=== PATIENT | female | born 1970 | race Caucasian/White ===

== ENCOUNTER 2023-08-14 22:32 | Emergency (ER) | payer SELFPAY ==
[2023-08-14] MEDS ORDERED: ALBUTEROL 2.5 MG/3 ML NEB SOL ONE (23:12)
[2023-08-14] MEDS ORDERED: lisinopriL 10 MG TAB ONE (23:12)
[2023-08-14] MEDS ORDERED: METHYLPREDNISOLONE 125 MG INJ ONE (23:12)
[2023-08-14] MEDS ORDERED: IPRATROPIUM BROM 0.5MG/2.5ML ONE (23:12)
[2023-08-14] MEDS ORDERED: lisinopriL 5 MG TAB ONE (23:18)
--- NOTE | 2023-08-14 23:58 | EDPHYS ---
Physician Documentation [facility] Name: Yvonne Ivey Age: 53 yrs Sex: Female : 1970 Arrival Date: 08/14/2023 Time: 22:32 Bed 6 Private MD: ED Physician Costa Piña HPI: 08/13 22:42 This 53 yrs old Female presents to ER via Unassigned with complaints of Asthma kb Exacerbation, Cough, Congestion, Breathing Difficulty. 22:42 Pt is a 53 year old female who presents for headache, cough, bodyaches, congestion for kb 2.5 weeks. States she is now having intermittent shortness of breath and lung pain. Denies fever. Pt also requests refills of home medication for cholesterol and hypertension because she just moved here and hasn't gotten a PCP. Lisinopril 10mg daily and atorvastatin 20mg daily. EDGER AUTOMATIC: 23:10 unknown [facility] Historical: - Allergies: 23:05 No Known Allergies; [facility] - PMHx: 23:05 Hypertensive disorder; Chronic obstructive lung disease; Asthma; [facility] - PSHx: 23:05 Ligation of fallopian tube; [facility] - Immunization history:: Adult Immunizations not up to date. - Infectious Disease History:: Denies. - Social history:: Smoking status: Patient/guardian denies using tobacco, the patient reports quitting approximately 15 years ago. ROS: 22:42 Constitutional: As per HPI kb Exam: 22:42 Constitutional: This is a well developed, well nourished patient who is awake, alert, kb and in no acute distress. Head/Face: Normocephalic, atraumatic. ENT: Moist Mucous membranes Cardiovascular: Regular rate Skin: Warm, dry with normal turgor. Normal color. MS/ Extremity: Pulses equal, no cyanosis. Neurovascular intact. Full, normal range of motion. Neuro: Awake and alert, GCS 15, oriented to person, place, time, and situation. Moves all extremities. Normal gait. 22:42 Respiratory: the patient does not display signs of respiratory distress, Respirations: normal, Breath sounds: wheezing: expiratory that is mild, that is moderate, is heard in the left posterior lower lobe, right posterior middle lobe and right posterior lower lobe, Vital Signs: 23:01 BP 175 / 88; Pulse 97; Resp 22; Temp 98.2(O); Pulse Ox 94% on R/A; Weight 134.26 kg [facility] (R); Pain 0/10; 08/14 00:06 BP 156 / 67; Pulse 78; Resp 18; Temp 98.4; Pulse Ox 96% on R/A; Pain 0/10; [facility] 08/13 23:01 Pain Scale: Adult [facility] 08/14 00:06 Pain Scale: Adult [facility] MDM: 08/13 22:38 Patient medically screened. kb 23:17 ED course: Pt states she just spoke to a family member that looked at her pill bottles kb and her lisinopril is 5mg daily. 23:54 Data reviewed: vital signs, nurses notes. kb 23:54 Differential diagnosis: pneumonia, uri, bronchitis, asthma. Counseling: I had a kb detailed discussion with the patient and/or guardian regarding the historical points, exam findings, and any diagnostic results supporting the discharge/admit diagnosis, radiology results, the need for outpatient follow up, a family practitioner, to return to the emergency department if symptoms worsen or persist or if there are any questions or concerns that arise at home. 08/13 22:45 Order name: Chest Pa And Lat (2 Views) XRAY kb Administered Medications: 22:45 CANCELLED (Physician Discretion): [id number] mg IVP once kb 23:18 CANCELLED (Duplicate Order): [id number] mg PO once kb 23:21 Drug: Albuterol Inhalation 2.5 mg Inhalation once Route: Inhalation; contra [facility] 08/14 00:09 Follow up: Response: No adverse reaction [facility] 08/13 23:21 Drug: Ipratropium Inhalation Aerosol 0.5 mg Inhalation once Route: Inhalation; contra [facility] 08/14 00:08 Follow up: Response: No adverse reaction [facility] 08/13 23:21 Drug: MethylPREDNISolone Sodium Succinate IM 125 mg IM once Route: IM; [address]; 08/14 00:08 Follow up: Response: No adverse reaction [facility] 08/13 23:21 Drug: Lisinopril PO 5 mg PO once Route: PO; contra [facility] 08/14 00:08 Follow up: Response: No adverse reaction [facility] Disposition Summary: 08/14/23 23:57 Discharge Ordered Notes: Location: Home kb Condition: Stable kb Diagnosis - Unspecified asthma with (acute) exacerbation kb - Encounter for issue of repeat prescription kb Followup: kb - With: Emergency Department - When: As needed - Reason: Worsening of condition Followup: kb - With: Private Physician - When: 2 - 3 days - Reason: Recheck today's complaints, Continuance of care, Re-evaluation by your physician Discharge Instructions: - Discharge Summary Sheet kb - Asthma, Adult, [id number] kb Forms: - Medication Reconciliation Form kb - Antibiotic Education kb - Prescription Opioid Use kb - Patient Portal Instructions kb - Leadership Thank You Letter kb Prescriptions: - atorvastatin 20 mg Oral tablet - take 1 tablet ORAL route daily; 30 tablet; Refills: 0, Product Selection kb Permitted - Prednisone 20 mg Oral Tablet - take 1 tablet ORAL route once daily for 5 days; 5 tablet; Refills: 0, Product kb Selection Permitted - Albuterol Sulfate 2.5 mg /3 mL (0.083 %) Inhalation Solution for Nebulization - inhale 1 unit NEBULIZATION route every 8 hours As needed; 1 Unspecified; kb Refills: 0, Product Selection Permitted - Lisinopril 5 mg Oral tablet - take 1 tablet ORAL route once daily; 30 tablet; Refills: 0, Product Selection kb Permitted Signatures: Dispatcher [employer] EDMS Kalani Gomez, CAITIE GUZMAN-Kenzie Calero RN RN km8 Felice Kaur, RN RN jh8 Corrections: (The following items were deleted from the chart) 08/13 22:45 22:45 MethylPrednisoLONE IVP 125 mg IVP once ordered. kb kb 22:48 22:42 Pt is a 53 year old female who presents for headache, cough, bodyaches, kb congestion for 2.5 weeks. States she is now having intermittent shortness of breath and lung pain. Denies fever. . kb 22:49 22:42 Pt is a 53 year old female who presents for headache, cough, bodyaches, kb congestion for 2.5 weeks. States she is now having intermittent shortness of breath and lung pain. Denies fever. Pt also requests refills of home medication for cholesterol and hypertension because she just moved here and hasn't gotten a PCP. Lisinopril 10mg daily and an unknown cholesterol medication. kb 23:18 22:50 Lisinopril PO 10 mg PO once ordered. kb kb
--- NOTE | 2023-08-14 23:58 | ER ---
Nurse's Notes [facility] Name: Yvonne Ivey Age: 53 yrs Sex: Female : 1970 Arrival Date: 08/14/2023 Time: 22:32 Bed 6 Private MD: Diagnosis: Unspecified asthma with (acute) exacerbation;Encounter for issue of repeat prescription Presentation: 08/13 23:01 Chief complaint: Patient states: cough x1 week, hx of asthma, copd. Coronavirus screen: [facility] Vaccine status: Patient reports being unvaccinated. Client denies travel out of the [place] in the last 14 days. Ebola Screen: No symptoms or risks identified at this time. Resp Distress? Mild respiratory distress is noted. Initial Sepsis Screen: Does the patient meet any 2 criteria? No. Patient's initial sepsis screen is negative. Does the patient have a suspected source of infection? No. Patient's initial sepsis screen is negative. Risk Assessment: Do you want to hurt yourself or someone else? Patient reports no desire to harm self or others. Onset of symptoms. 23:01 Method Of Arrival: Ambulatory [facility] 23:01 Acuity: PADMINI 4 [facility] Triage Assessment: 23:07 General: Appears in no apparent distress. obese, well groomed, Behavior is calm, [facility] cooperative. Pain: Denies pain. Respiratory: Airway is patent Respiratory effort is even, unlabored, Respiratory pattern is regular, symmetrical, Breath sounds are coarse Breath sounds with wheezes bilaterally. 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 Historical: - Allergies: 23:05 No Known Allergies; [facility] - PMHx: 23:05 Hypertensive disorder; Chronic obstructive lung disease; Asthma; [facility] - PSHx: 23:05 Ligation of fallopian tube; [facility] - Immunization history:: Adult Immunizations not up to date. - Infectious Disease History:: Denies. - Social history:: Smoking status: Patient/guardian denies using tobacco, the patient reports quitting approximately 15 years ago. Screenin:09 [facility] ED Fall Risk Assessment (Adult) History of falling in the last 3 months, [facility] including since admission No falls in past 3 months (0 pts) Confusion or Disorientation No (0 pts) Intoxicated or Sedated No (0 pts) Impaired Gait No (0 pts) Mobility Assist Device Used No (0 pt) Altered Elimination No (0 pt) Score/Fall Risk Level 0 - 2 = Low Risk Oriented to surroundings, Maintained a safe environment, Educated pt \T\ family on fall prevention, incl call for assistance when getting out of bed. Abuse screen: Denies threats or abuse. Denies injuries from another. Nutritional screening: No deficits noted. Tuberculosis screening: No symptoms or risk factors identified. Assessment: 23:34 General: Appears in no apparent distress. comfortable, obese, well groomed, Behavior is [facility] calm, cooperative. Pain: Denies pain. Neuro: Level of Consciousness is awake, alert, obeys commands, Oriented to person, place, time, situation. Cardiovascular: Capillary refill < 3 seconds Patient's skin is warm and dry. Respiratory: Airway is patent Respiratory effort is even, unlabored, Respiratory pattern is regular, symmetrical. Vital Signs: 23:01 BP 175 / 88; Pulse 97; Resp 22; Temp 98.2(O); Pulse Ox 94% on R/A; Weight 134.[address] [facility] (R); Pain 0/10; 08/14 00:06 BP 156 / 67; Pulse 78; Resp 18; Temp 98.4; Pulse Ox 96% on R/A; Pain 0/10; [facility] 08/13 23:01 Pain Scale: Adult [facility] 08/14 00:06 Pain Scale: Adult [facility] ED Course: 08/13 22:34 Patient arrived in ED. mr 22:37 JasonKalani, CAITIE is [facility] kb 22:37 Costa Piña MD is Attending Physician. kb 22:58 Chest Pa And Lat (2 Views) XRAY In Process Unspecified. EDMS 23:[address] [facility] 23:08 Arm band placed on left wrist. Patient placed in an exam room, on pulse oximetry. 8 23:09 No provider procedures requiring assistance completed. 8 23:10 Patient has correct armband on for positive identification. Fall risk band placed. Bed [facility] in low position. Call light in reach. Side rails up X 1. Adult w/ patient. Provided Education on: medications, verbalized understanding. 08/14 00:07 Patient did not have IV access during this emergency room visit. [facility] Administered Medications: 08/13 22:45 CANCELLED (Physician Discretion): [id number] mg IVP once kb 23:18 CANCELLED (Duplicate Order): [id number] mg PO once kb 23:21 Drug: Albuterol Inhalation 2.5 mg Inhalation once Route: Inhalation; [facility] 08/14 00:09 Follow up: Response: No adverse reaction [facility] 08/13 23:21 Drug: Ipratropium Inhalation Aerosol 0.5 mg Inhalation once Route: Inhalation; [facility] 08/14 00:08 Follow up: Response: No adverse reaction [facility] 08/13 23:21 Drug: MethylPREDNISolone Sodium Succinate IM 125 mg IM once Route: IM; Site: left [facility]; 08/14 00:08 Follow up: Response: No adverse reaction [facility] 08/13 23:21 Drug: Lisinopril PO 5 mg PO once Route: PO; [facility] 08/14 00:08 Follow up: Response: No adverse reaction [facility] Medication: 08/13 23:10 VIS not applicable for this client. [facility] Outcome: 23:57 Discharge ordered by MD. kern 08/14 00:07 Discharged to home ambulatory, 8 Condition: stable Discharge instructions given to patient, Demonstrated understanding of instructions, follow-up care, medications, Prescriptions given X 4, 00:08 Patient left the ED. jh8 Signatures: Dispatcher [employer] EDMS Kalani Gomez, THOMAS-C STEM TEACHER-Sanaz Farah, Caden Negrete mr Kenzie Montez, ANKUSH RN km8 Felice Kaur, ANKUSH RN jh8
[2023-08-15 01:06] VITALS: BP 156/67; TEMP 98.4; O2SAT 96
--- NOTE | 2023-08-15 15:03 | RAD REPORT ---
EXAM DESCRIPTION: RAD - Chest Pa And Lat (2 Views) - 08/14/2023 10:59 pm CLINICAL HISTORY: COUGH COMPARISON: None TECHNIQUE: PA and lateral views of the chest. FINDINGS: Lung volumes adequate. Cardiac silhouette is normal in size. No pneumothorax. No large pleural effusion. No focal consolidation. No acute bony finding. IMPRESSION: No evidence of acute cardiopulmonary disease. Electronically signed by: Esthela Goodman MD 08/14/2023 11:08 PM CDT Due to temporary technical issues with the PACS/Fluency reporting system, reports are being signed by the in house radiologists without review as a courtesy to insure prompt reporting. The interpreting radiologist is fully responsible for the content of the report
== END 2023-08-15 00:08 | disposition home or self-care (01) ==
LOC: ER 22:32
DX: J45.901 Unspecified asthma with (acute) exacerbation (principal); Z76.0 Encounter for issue of repeat prescription
CPT/HCPCS: 71046; 96372; 99285; J2919; J7613; J7644

== ENCOUNTER 2024-05-08 11:43 | Emergency (ER) | payer SELFPAY ==
--- OUTSIDE RECORDS SUMMARY | 2024-05-08 11:46 | XMS REPORT | Clinical Summary ---
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 Name Role Phone Unavailable Primary Care Provider Unavailabl e Encounters Date Type Department Care Team Description 03/08/2024 Documentation Breast Imaging [address] [facility]th [place] [address] Olga Harrison, RT after 05/09/2023 Social History Tobacco Use Types Packs/Day Years Used Date Smoking Tobacco: Never Assessed Comments Unknown Sex and Gender Information Value Date Recorded Sex Assigned at Not on file 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
[2024-05-08 12:20] LABS: Absolute Basophils 0.1 K/uL (0-0.5); Absolute Eosinophils 0.1 K/uL (0-0.5); Absolute Lymphocytes (CBC) 1.9 K/uL (0.7-4.9); Absolute Monocytes 0.6 K/uL (0.1-1.3); Absolute Neutrophil 6.3 K/uL (1.8-8.0); Basophils % 1.4 % (0-1.3); Eosinophils % 1.4 % (0-4.4); Hematocrit 45.2 % (36.0-45.0); Lymphocytes % 21.3 % (15.3-44.8); MCH 27.9 pg (27.0-35.0); MCHC 33.2 g/dL (32.0-36.0); MPV 8.4 fL (7.6-11.3); Monocytes % 6.6 % (3.3-12.3); Neutrophils % 69.3 % (41.7-73.7); Nucleated Red Blood Cells % 0.1 % (0-0); Platelets 266 thou/uL (152-406); RBC Red Blood Cell Count 5.38 M/uL (3.86-4.86); Red Cell Distribution Width 15.2 % (12.1-15.2)
[2024-05-08] MEDS ORDERED: KETOROLAC 30 MG/ML INJ ONE (12:20)
[2024-05-08 12:32] LABS: PT Prothrombin Time 11.1 SECONDS (9.4-12.5); Protime INR 1.06
[2024-05-08] MEDS ORDERED: ONDANSETRON 4 MG/2 ML VIAL ONE (12:47)
[2024-05-08 12:52] LABS: Platelet Estimate ADEQ; Platelets Clumped FEW; White Blood Cell Scan OK (OK)
[2024-05-08 12:53] LABS: Blood Morphology Comment NOT SEEN (NOT SEEN)
[2024-05-08 13:05] LABS: Albumin 3.7 g/dL (3.4-5.0); Albumin/Globulin Ratio 0.8 (1.1-1.8); Anion Gap 8.6 mEq/L (5.0-15.0); Bilirubin Direct 0.2 mg/dL (0-0.2); Bilirubin Indirect, Calculated 0.3 mg/dL (0.2-0.8); Bilirubin Total 0.5 mg/dL (0.2-1.0); Globulin 4.5 g/dL (2.3-3.5); Magnesium 2.2 mg/dL (1.6-2.4); Potassium 3.6 mEq/L (3.5-5.1); Protein, Total 8.2 g/dL (6.4-8.2); Troponin High Sensitivity 8.2 pg/mL (<58.9)
--- NOTE | 2024-05-08 13:20 | ER ---
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 + nausea ss and dizziness, gait steady. Out of her BP and cholesterol medications for months. Coronavirus screen: Client denies travel out of the [place] in the last 14 days. At this time, the client does not indicate any symptoms associated with coronavirus-19. Ebola Screen: Patient denies travel to an Ebola-affected area in the 21 days before illness onset. Initial Sepsis Screen: Does the patient meet any 2 criteria? No. Patient's initial sepsis screen is negative. Does the patient have a suspected source of infection? No. Patient's initial sepsis screen is negative. Risk Assessment: Do you want to hurt yourself or someone else? Patient reports no desire to harm self or others. Onset of symptoms was May 08, 2024. 11:54 Method Of Arrival: Ambulatory ss 11:54 Acuity: PADMINI 2 ss Triage Assessment: 11:55 General: Appears distressed, Behavior is calm, cooperative, appropriate for age. Pain: ss Complains of pain in left arm. 13:33 Injury Description: No injury. 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 - Infectious Disease History:: Denies. - Social history:: Smoking status: Patient denies any tobacco usage or history of. Screenin:01 [facility] ED Fall Risk Assessment (Adult) History of falling in the last 3 months, cm10 including since admission No falls in past 3 months (0 pts) Confusion or Disorientation No (0 pts) Intoxicated or Sedated No (0 pts) Impaired Gait No (0 pts) Mobility Assist Device Used No (0 pt) Altered Elimination No (0 pt) Score/Fall Risk Level 0 - 2 = Low Risk Oriented to surroundings, Maintained a safe environment, Hourly rounding (assess needs \T\ fall precautionary measures) done. Abuse screen: Denies threats or abuse. Denies injuries from another. Nutritional screening: No deficits noted. Tuberculosis screening: No symptoms or risk factors identified. Assessment: 12:01 General: Appears in no apparent distress. uncomfortable, Behavior is calm, cooperative, cm10 appropriate for age. Pain: Complains of pain in left arm Pain currently is 2 out of 10 on a pain scale. Neuro: No deficits noted. Level of Consciousness is awake, alert, obeys commands, Oriented to person, place, time, situation, Appropriate for age Ada Accommodation Consultant are equal bilaterally Moves all extremities. Gait is steady, Speech is normal, Facial symmetry appears normal, Numbness in left arm Reports dizziness, numbness in left arm. Respiratory: No deficits noted. Airway is patent Respiratory effort is even, unlabored, Respiratory pattern is regular, symmetrical. Musculoskeletal: Circulation, motion, and sensation intact. Range of motion: intact in all extremities, Reports pain in left arm. 13:29 Reassessment: Patient appears in no apparent distress at this time. Patient and/or cm10 family updated on plan of care and expected duration. Pain level reassessed. Patient is alert, oriented x 3, equal unlabored respirations, skin warm/dry/pink. Vital Signs: 11:54 BP 202 / 95; Pulse 86; Resp 18; Temp 97.7; Pulse Ox 96% on R/A; Weight 135.62 kg; ss Height 5 ft. 2 in. ; Pain 2/10; 12:12 BP 161 / 72; Pulse 79; Resp 13; Pulse Ox 97% on R/A; cm10 13:00 BP 155 / 68; Pulse 73; Resp 15; Pulse Ox 96% ; cm10 11:54 Body Mass Index 54.69 (135.62 kg, 157.48 cm) ss 11:54 Pain Scale: Adult ED Course: 11:46 Patient arrived in ED. mr 11:52 Dennis Richter, ANKUSH is Primary Nurse. rs5 11:53 Arm band placed on Patient placed in an exam room, on a stretcher. ss 11:55 Triage completed. ss 11:57 Kathi Schneider MD is Attending Physician. sp3 12:00 Patient has correct armband on for positive identification. Bed in low position. Call cm10 light in reach. Side rails up X 1. Provided Education on: ER process and procedures.. Client placed on continuous cardiac and pulse oximetry monitoring. NIBP monitoring applied. 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 12:00 Initial lab(s) drawn, by me, sent to lab. EKG done, by ED staff, reviewed by Kathi Schneider MD. Inserted saline lock: 20 gauge in right antecubital area, using aseptic technique. Blood collected. Flushed with 10 mL NS. 13:09 XRAY Chest (1 view) In Process Unspecified. EDMS 13:32 No provider procedures requiring assistance completed. IV discontinued, intact, cm10 bleeding controlled, No redness/swelling at site. Pressure dressing applied. Administered Medications: 12:26 Not Given (Patient Refused): [id number] mg IVP once rs5 Medication: 12:01 VIS not applicable for this client. cm10 Outcome: 13:19 Discharge ordered by . [email or web address] 13:32 Discharged to home ambulatory, with family, cm10 13:32 Condition: good 13:32 Discharge instructions given to patient, Instructed on discharge instructions, follow up and referral plans. medication usage, Demonstrated understanding of instructions, follow-up care, medications, Prescriptions given X 2, 13:37 Patient left the ED. rs5 Signatures: Dispatcher [employer] EDPR Sanaz Streeter, Reg Reg mr AlvarezCampbellMarizol, RN RN Kathi Bhatia MD MD sp3 Dennis Richter RN RN rs5 Swetha Johnson RN RN cm10
--- NOTE | 2024-05-08 13:20 | EDPHYS ---
Physician Documentation [facility] Name: Yvonne Ivey Age: 53 yrs Sex: Female : 1970 Arrival Date: 05/08/2024 Time: 11:43 Bed 2 Private MD: ED Physician Kathi Schneider HPI: 05/08 13:00 This 53 yrs old Female presents to ER via Ambulatory with complaints of Arm Injury, sp3 Numbness Of Arm, Nausea, Dizziness. 13:00 53-year-old female with history of COPD, hypertension, hyperlipidemia presents to the sp3 ED with chief complaint left shoulder muscular pain just prior to arrival with mild numbness in that area. Patient reports she has been doing new exercise with swinging her arms. She denies any chest pain, shortness of breath, back pain, continued ongoing symptoms, abdominal pain, vomiting, diarrhea, syncope, or any other signs or symptoms on ROS at this time.. BUNDLE TIER: 13:33 unknown cm10 Historical: - Allergies: 11:53 No Known Allergies; ss - PMHx: 11:53 Asthma; Chronic obstructive lung disease; Hypertensive disorder; Hypercholesterolemia; ss - PSHx: 11:53 Ligation of fallopian tube; ss - Immunization history:: Adult Immunizations up to date. - Infectious Disease History:: Denies. - Social history:: Smoking status: Patient denies any tobacco usage or history of. ROS: 13:02 Constitutional: Negative for fever, chills, and weight loss, Eyes: Negative for injury, sp3 pain, redness, and discharge, Neck: Negative for injury, pain, and swelling, Cardiovascular: Negative for chest pain, palpitations, and edema, Respiratory: Negative for shortness of breath, cough, wheezing, and pleuritic chest pain, Abdomen/GI: Negative for abdominal pain, nausea, vomiting, diarrhea, and constipation, Back: Negative for injury and pain, Skin: Negative for injury, rash, and discoloration, Psych: Negative for depression, anxiety, suicide ideation, homicidal ideation, and hallucinations, Allergy/Immunology: Negative for hives, rash, and allergies, Endocrine: Negative for neck swelling, polydipsia, polyuria, polyphagia, and marked weight changes, Hematologic/Lymphatic: Negative for swollen nodes, abnormal bleeding, and unusual bruising, 13:02 All other systems are negative, Exam: 13:02 Constitutional: This is a well developed, well nourished patient who is awake, alert, sp3 and in no acute distress. Head/Face: Normocephalic, atraumatic. Eyes: Pupils equal round and reactive to light, extra-ocular motions intact. Lids and lashes normal. Conjunctiva and sclera are non-icteric and not injected. Cornea within normal limits. Periorbital areas with no swelling, redness, or edema. ENT: Nares patent. No nasal discharge, no septal abnormalities noted. External auditory canals are clear. Oropharynx with no redness, swelling, or masses, exudates, or evidence of obstruction, uvula midline. Mucous membranes moist. Neck: Trachea midline, no thyromegaly or masses palpated, and no cervical lymphadenopathy. Supple, full range of motion without nuchal rigidity, or vertebral point tenderness. No Meningismus. Chest/axilla: Normal chest wall appearance and motion. Nontender with no deformity. No lesions are appreciated. Cardiovascular: Regular rate and rhythm with a normal S1 and S2. No gallops, murmurs, or rubs. Normal PMI, no JVD. No pulse deficits. Respiratory: Lungs have equal breath sounds bilaterally, clear to auscultation and percussion. No rales, rhonchi or wheezes noted. No increased work of breathing, no retractions or nasal flaring. Abdomen/GI: Soft, non-tender, with normal bowel sounds. No distension or tympany. No guarding or rebound. No evidence of tenderness throughout. Back: No spinal tenderness. No costovertebral tenderness. Full range of motion. Skin: Warm, dry with normal turgor. Normal color with no rashes, no lesions, and no evidence of cellulitis. MS/ Extremity: Pulses equal, no cyanosis. Neurovascular intact. Full, normal range of motion. Neuro: Awake and alert, GCS 15, oriented to person, place, time, and situation. Cranial nerves II-XII grossly intact. Motor strength 5/5 in all extremities. Sensory grossly intact. Cerebellar exam normal. Normal gait. Psych: Awake, alert, with orientation to person, place and time. Behavior, mood, and affect are within normal limits. 13:02 ECG was reviewed by the Attending Physician. EKG demonstrates normal sinus rhythm at 95 bpm with normal intervals, normal QRS, normal axis, normal ST/T-segment's without evidence of acute ischemia. Vital Signs: 11:54 BP 202 / 95; Pulse 86; Resp 18; Temp 97.7; Pulse Ox 96% on R/A; Weight 135.62 kg; ss Height 5 ft. 2 in. ; Pain 2/10; 12:12 BP 161 / 72; Pulse 79; Resp 13; Pulse Ox 97% on R/A; cm10 13:00 BP 155 / 68; Pulse 73; Resp 15; Pulse Ox 96% ; cm10 11:54 Body Mass Index 54.69 (135.62 kg, 157.48 cm) ss 11:54 Pain Scale: Adult ss MDM: 12:00 Medical Screening Exam initiated sp3 13:18 ED course: Full workup negative including all labs, troponin, chest x-ray. I believe sp3 patient's symptoms are muscular in origin as they are now fully resolved and she has a clear etiology as to the source.. 05/08 12:05 Order name: Basic Metabolic Panel; Complete Time: 13:09 3 05/08 12:05 Order name: CBC with Diff; Complete Time: 13:04 3 05/08 12:05 Order name: LFT's; Complete Time: 13:09 3 05/08 12:05 Order name: Magnesium; Complete Time: 13:09 3 05/08 12:05 Order name: NT PRO-BNP; Complete Time: 13:09 3 05/08 12:05 Order name: PT-INR; Complete Time: 13:04 3 05/08 12:05 Order name: Troponin HS; Complete Time: 13:09 3 05/08 12:53 Order name: CBC Smear Scan; Complete Time: 13:04 EDMS 05/08 12:05 Order name: XRAY Chest (1 view); Complete Time: 13:22 3 05/08 12:05 Order name: Cardiac monitoring; Complete Time: 12:06 3 05/08 12:05 Order name: EKG - Nurse/Tech; Complete Time: 12:05 3 05/08 12:05 Order name: IV Saline Lock; Complete Time: 12:05 3 05/08 12:05 Order name: Labs collected and sent; Complete Time: 12:05 3 05/08 12:05 Order name: O2 Per Protocol; Complete Time: 12:05 sp3 05/08 12:05 Order name: O2 Sat Monitoring; Complete Time: 12:06 sp3 05/08 12:05 Order name: Recheck Blood Pressure; Complete Time: 12:12 sp3 Administered Medications: 12:26 Not Given (Patient Refused): [id number] mg IVP once rs5 Disposition Summary: 05/08/24 13:19 Discharge Ordered Notes: Location: Home sp3 Condition: Stable sp3 Diagnosis - Left shoulder pain, muscle strain sp3 Followup: sp3 - With: Private Physician - When: Upon discharge from the Emergency Department - Reason: Recheck today's complaints Discharge Instructions: - Discharge Summary Sheet sp3 - Muscle Pain, Adult sp3 Forms: - Medication Reconciliation Form sp3 - Antibiotic Education sp3 - Prescription Opioid Use sp3 - Patient Portal Instructions sp3 - Leadership Thank You Letter sp3 Prescriptions: - Lisinopril 5 mg Oral tablet - take 1 tablet ORAL route once daily; 30 tablet; Refills: 0, Product Selection sp3 Permitted - Diclofenac Sodium 75 mg Oral Tablet Sustained Release - take 1 tablet ORAL route 2 times per day; 30 tablet; Refills: 0, Product sp3 Selection Permitted - ondansetron 8 mg Oral Tablet,disintegrating - take 1 tablet ORAL route every 12 hours; 20 tablet; Refills: 0, Product sp3 Selection Permitted Signatures: Dispatcher [employer] EDMS Mraizol Campbell, RN RN ss Kathi Schneider MD MD sp3 Swetha Johnson RN RN cm10 Dennis Richter RN rs5 Corrections: (The following items were deleted from the chart) 12: 12:06 BASIC METABOLIC PANEL+C.LAB.BRZ ordered. EDMS EDMS 12: 12:06 CBC+H.LAB.BRZ ordered. EDMS EDMS 12: 12:06 HEPATIC FUNCTION+C.LAB.BRZ ordered. EDMS EDMS 12: 12:06 MAGNESIUM+C.LAB.BRZ ordered. EDMS EDMS 12: 12:06 PROBNP+C.LAB.BRZ ordered. EDMS EDMS 12: 12:06 PROTIME (+INR)+COAG.LAB.BRZ ordered. EDMS EDMS 12: 12:06 Troponin High Sensitivity+C.LAB.BRZ ordered. EDMS EDMS 12:06 12:06 Chest Single View+RAD.RAD.BRZ ordered. EDMS EDMS
--- NOTE | 2024-05-08 13:21 | RAD REPORT ---
EXAM: Chest Single View HISTORY: left arm pain COMPARISON: 08/14/2023 FINDINGS: LUNGS/PLEURA: Diffuse vascular prominence. MEDIASTINUM: The mediastinal silhouette is within normal limits. CARDIAC: Mild cardiomegaly UPPER ABDOMEN: No significant abnormality. BONES: No acute abnormality. LINES/TUBES/OTHER: N/A IMPRESSION: Vascular congestion with or without mild pulmonary edema. No consolidative airspace disease.
[2024-05-09 02:57] VITALS: BP 155/68; TEMP 97.7; O2SAT 96
== END 2024-05-08 13:37 | disposition home or self-care (01) ==
LOC: ER 11:43
DX: S46.912A Strain of unspecified muscle, fascia and tendon at shoulder and upper arm level, left arm, initial encounter (principal)
CPT/HCPCS: 36415; 71045; 80048; 80076; 83735; 83880; 84484; 85025; 85610; 99284; J2405

== ENCOUNTER 2024-06-05 01:58 | Emergency (ER) | payer SELFPAY ==
--- OUTSIDE RECORDS SUMMARY | 2024-06-05 02:01 | XMS REPORT | Clinical Summary ---
Author Name Unknown Organization [facility] Address [address] [place] [address] Care Team Providers Care Bill Checker Name Role Phone Unavailable Primary Care Provider Unavailabl e Encounters Date Type Department Care Team Description 03/08/2024 Documentation Breast Imaging [address] [place] [address] Olga Harrison, RT after 06/06/2023 Social History Tobacco Use Types Packs/Day Years Used Date Smoking Tobacco: Never Assessed Comments Unknown Sex and Gender Information Value Date Recorded Sex Assigned at Not on file Legal Sex Female 7:26 AM [employer] Gender Identity Not on file Sexual Orientation Not on file Plan of Treatment Health Maintenance Due Date Last Done Comments Pneumococcal Vaccine: 50+ Ye ars (1 of - PCV) 2022 COVID-19 Vaccine (2023-2 5 season) 2023 Influenza Vaccine (#1) 2023 Pneumococcal Vaccine Aged Out No long er eligible based on patient's age to complete this topic
[2024-06-05] MEDS ORDERED: ONDANSETRON 4 MG (ODT) TAB ONE (02:21)
--- NOTE | 2024-06-05 03:52 | ER ---
Nurse's Notes [facility] Name: Yvonne Ivey Age: 54 yrs Sex: Female : 1970 Arrival Date: 06/05/2024 Time: 01:58 Bed 21 Private MD: Diagnosis: Acut Nausea with Vomiting, Acute viral gastroenteritis Presentation: 06/05 02:02 Chief complaint: Patient states: NAUSEA AND VOMITING . DENIES ABDOMINAL PAIN. ha1 02:02 Coronavirus screen: Client denies travel out of the [place] in the last 14 days. Ebola ha1 Screen: No symptoms or risks identified at this time. Initial Sepsis Screen: Does the patient meet any 2 criteria? No. Patient's initial sepsis screen is negative. Does the patient have a suspected source of infection? No. Patient's initial sepsis screen is negative. Risk Assessment: Do you want to hurt yourself or someone else? Patient reports no desire to harm self or others. Onset of symptoms was June 05, 2024. 02:02 Method Of Arrival: Ambulatory ha1 02:02 Acuity: PADMINI 5 ha1 Triage Assessment: 02:02 General: Appears uncomfortable, Behavior is calm, cooperative. Pain: Denies pain. ha1 Neuro: Level of Consciousness is awake, alert, obeys commands, Oriented to person, place, time, situation. Cardiovascular: Capillary refill < 3 seconds Patient's skin is warm and dry. Respiratory: Airway is patent Respiratory effort is even, unlabored, Respiratory pattern is regular, symmetrical. GI: Abdomen is round non-distended, Reports nausea, vomiting. : No signs and/or symptoms were reported regarding the genitourinary system. Derm: Skin is pink, warm \T\ dry. Musculoskeletal: Circulation, motion, and sensation intact. Range of motion: intact in all extremities. Historical: - Allergies: 02:02 No Known Allergies; ha1 - PMHx: 02:02 Asthma; Chronic obstructive lung disease; Hypercholesterolemia; Hypertensive disorder; ha1 - PSHx: 02:02 Ligation of fallopian tube; Cholecystectomy; ha1 - Immunization history:: Adult Immunizations not up to date. - Infectious Disease History:: Denies. - Social history:: Smoking status: Patient/guardian denies using tobacco, the patient reports quitting approximately 15 years ago. - Family history:: not pertinent. Screenin:23 [facility] ED Fall Risk Assessment (Adult) History of falling in the last 3 months, ha1 including since admission No falls in past 3 months (0 pts) Confusion or Disorientation No (0 pts) Intoxicated or Sedated No (0 pts) Impaired Gait No (0 pts) Mobility Assist Device Used No (0 pt) Altered Elimination No (0 pt) Score/Fall Risk Level 0 - 2 = Low Risk Oriented to surroundings, Maintained a safe environment, Educated pt \T\ family on fall prevention, incl call for assistance when getting out of bed, Hourly rounding (assess needs \T\ fall precautionary measures) done. Abuse screen: Denies threats or abuse. Denies injuries from another. Nutritional screening: No deficits noted. Tuberculosis screening: No symptoms or risk factors identified. Assessment: 02:05 General: Appears in no apparent distress. uncomfortable, Behavior is calm, cooperative. ay Pain: Denies pain. Neuro: Level of Consciousness is awake, alert, obeys commands, Oriented to person, place, time, situation, Speech is normal. Cardiovascular: Denies chest pain, shortness of breath. Respiratory: Denies cough, shortness of breath. GI: Abdomen is obese, Patient currently denies abdominal pain. : No signs and/or symptoms were reported regarding the genitourinary system. EENT: No signs and/or symptoms were reported regarding the EENT system. Derm: No signs and/or symptoms reported regarding the dermatologic system. Vital Signs: 02:02 Weight 128.82 kg; Height 5 ft. 5 in. ; ha1 02:30 BP 142 / 67; Pulse 94; Resp 19; Temp 97.5; Pulse Ox 95% on R/A; ay 02:02 Body Mass Index 47.26 (128.82 kg, 165.1 cm) ha1 Mihir Coma Score: 06/06 01:51 Eye Response: spontaneous(4). Motor Response: obeys commands(6). Verbal Response: sp4 oriented(5). Total: 15. ED Course: 06/05 01:59 Patient arrived in ED. [email or web address] 02:02 Patient has correct armband on for positive identification. Bed in low position. Call ha1 light in reach. Side rails up X 1. Adult w/ patient. 02:05 Noah Reese MD is Attending Physician. sp4 02:05 No provider procedures requiring assistance completed. Patient did not have IV access ay during this emergency room visit. 02:21 Triage completed. ha1 03:38 Annetta Campo, RN is Primary Nurse. ay Administered Medications: 02:15 Not Given (Patient Eloped): ondansetron 8 mg IVP once; over 2 minutes sp4 02:15 Not Given (Physician Discretion): ns 0.9% 1000 ml IV at 1000 ml once; to be given as a sp4 bolus over 60 minutes 02:28 Drug: Ondansetron PO 8 mg PO once Route: PO; ay 03:54 Follow up: Response: No adverse reaction; Nausea is decreased ay Outcome: 03:52 Discharge ordered by . sp4 03:59 Discharged to home ambulatory, ay 03:59 Condition: stable 03:59 Discharge instructions given to patient, Instructed on discharge instructions, follow up and referral plans. medication usage, Demonstrated understanding of instructions, follow-up care, medications, Prescriptions given X 1, 04:00 Patient left the ED. ay Signatures: Amanda Stockton [email or web address] Orin Rojas, RN RN ha1 Noah Reese MD MD sp4 Annetta Campo RN RN ay Corrections: (The following items were deleted from the chart) 02:22 02:02 Allergies: Aspirin; ha1 ha1
--- NOTE | 2024-06-05 03:52 | EDPHYS ---
Physician Documentation [facility] Name: Yvonne Ivey Age: 54 yrs Sex: Female : 1970 Arrival Date: 06/05/2024 Time: 01:58 Bed 21 Private MD: ED Physician Noah Reese HPI: 06/05 02:05 This 54 yrs old Female presents to ER via Unassigned with complaints of sp4 Nausea/Vomiting. 06/06 01:51 52-year-old female presents with acute onset nausea vomiting. Patient desires p.o. sp4 ondansetron.. Historical: - Allergies: 06/05 02:02 No Known Allergies; ha1 - PMHx: 02:02 Asthma; Chronic obstructive lung disease; Hypercholesterolemia; Hypertensive disorder; ha1 - PSHx: 02:02 Ligation of fallopian tube; Cholecystectomy; ha1 - Immunization history:: Adult Immunizations not up to date. - Infectious Disease History:: Denies. - Social history:: Smoking status: Patient/guardian denies using tobacco, the patient reports quitting approximately 15 years ago. - Family history:: not pertinent. ROS: 06/06 01:51 Constitutional: Negative for fever, chills, and weight loss, positive nausea and sp4 vomiting All other systems are negative, Exam: 01:51 Constitutional: This is a well developed, well nourished patient who is awake, alert, sp4 and in no acute distress. Morbidly overweight female Head/Face: Normocephalic, atraumatic. Eyes: Pupils equal round and reactive to light, extra-ocular motions intact. Lids and lashes normal. Conjunctiva and sclera are not injected. Cornea within normal limits. Periorbital areas with no swelling, redness, or edema. ENT: Nares patent. No nasal discharge, no septal abnormalities noted. Tympanic membranes are normal and external auditory canals are clear. Oropharynx with no redness, swelling, or masses, exudates, or evidence of obstruction, uvula midline. Mucous membranes moist. Neck: Trachea midline, no thyromegaly or masses palpated, and no cervical lymphadenopathy. Supple, full range of motion without nuchal rigidity, or vertebral point tenderness. Chest/axilla: Normal chest wall appearance and motion. Nontender with no deformity. No lesions are appreciated. Cardiovascular: Regular rate and rhythm with a normal S1 and S2. No gallops, murmurs, or rubs. Normal PMI, no JVD. No pulse deficits. Respiratory: Lungs have equal breath sounds bilaterally, clear to auscultation and percussion. No rales, rhonchi or wheezes noted. No increased work of breathing, no retractions or nasal flaring. Abdomen/GI: Soft, with normal bowel sounds. No distension or tympany. No guarding or rebound. No evidence of tenderness throughout. Back: No spinal tenderness. No costovertebral tenderness. Skin: Warm, dry with normal turgor. Normal color with no rashes, no lesions, and no evidence of cellulitis. MS/ Extremity: Pulses equal, no cyanosis. Neurovascular intact. Full, normal range of motion. Neuro: Awake and alert, GCS 15, oriented to person, place, time, and situation. Cranial nerves II-XII grossly intact. Motor strength 5/5 in all extremities. Sensory grossly intact. Psych: Awake, alert, with orientation to person, place and time. Behavior, mood, and affect are within normal limits Vital Signs: 06/05 02:02 Weight 128.82 kg; Height 5 ft. 5 in. ; ha1 02:30 BP 142 / 67; Pulse 94; Resp 19; Temp 97.5; Pulse Ox 95% on R/A; ay 02:02 Body Mass Index 47.26 (128.82 kg, 165.1 cm) ha1 Mihir Coma Score: 06/06 01:51 Eye Response: spontaneous(4). Motor Response: obeys commands(6). Verbal Response: sp4 oriented(5). Total: 15. MDM: 06/05 02:07 Medical Screening Exam initiated sp4 06/06 01:52 Differential diagnosis: Nonspecific abd pain, gastritis, viral gastroenteritis, sp4 gastroenteritis. Data reviewed: vital signs, nurses notes. ED course: Patient improved after p.o. ondansetron. Patient discharged home. 06/05 02:40 Order name: Glucose, Ancillary Testing; Complete Time: 02:52 EDMS 06/05 02:06 Order name: IV Saline Lock sp4 06/05 02:06 Order name: Labs collected and sent sp4 Administered Medications: 06/05 02:15 Not Given (Patient Eloped): ondansetron 8 mg IVP once; over 2 minutes sp4 02:15 Not Given (Physician Discretion): ns 0.9% 1000 ml IV at 1000 ml once; to be given as a sp4 bolus over 60 minutes 02:28 Drug: Ondansetron PO 8 mg PO once Route: PO; ay 03:54 Follow up: Response: No adverse reaction; Nausea is decreased ay Disposition: 06/06 01:53 Chart complete. sp4 Disposition Summary: 06/05/24 03:52 Discharge Ordered Notes: Location: Home sp4 Problem: new sp4 Symptoms: have improved sp4 Condition: Stable sp4 Diagnosis - Acut Nausea with Vomiting, Acute viral gastroenteritis sp4 Followup: sp4 - With: Private Physician - When: 7 - 10 days - Reason: Recheck today's complaints Discharge Instructions: - Discharge Summary Sheet sp4 - Viral Gastroenteritis, Adult, [id number] sp4 Forms: - Patient Portal Instructions sp4 Prescriptions: - ondansetron 8 mg Oral Tablet,disintegrating - take 1 tablet ORAL route every 8 hours PRN nausea; 30 tablet; Refills: 0, sp4 Product Selection Permitted Signatures: Dispatcher [employer] Orin Loera RN RN ha1 Noah Reese MD MD sp4 Annetta Campo RN RN ay Corrections: (The following items were deleted from the chart) 06/05 02:22 02:02 Allergies: Aspirin; ha1 ha1
[2024-06-05 04:05] VITALS: BP 142/67; TEMP 97.5; O2SAT 95
== END 2024-06-05 04:00 | disposition home or self-care (01) ==
LOC: ER 01:58
DX: A08.4 Viral intestinal infection, unspecified (principal); J44.9 Chronic obstructive pulmonary disease, unspecified
CPT/HCPCS: 82947; 99283; Q0162